=== PATIENT | female | born 1995 | race Hispanic/Latino ===

== ENCOUNTER 2019-08-11 20:06 | Emergency (ER) | payer OTHER ==
[~2019-08-11] VITALS: Ht 165.1 cm; Wt 127.0 kg
--- OUTSIDE RECORDS SUMMARY | 2019-08-11 20:09 | XMS REPORT ---
[facility] Address Unknown Phone Unavailable Care Team Providers Care Investment Underwriter Name Role Phone Unavailable Unavailable Payers Payer Name Policy Type Policy Number Effective Date Expiration Date Problems This patient has no known problems. Allergies, Adverse Reactions, Alerts Allergy Name Allergy Type Status Severity Reaction(s) Onset Date Inactive Date Treating Clinician Comments No Known Allergies DA Active U 2013-09-25 00:00:00 Medications This patient has no known medications.
[2019-08-11] MEDS ORDERED: ONDANSETRON HCL INJ 2MG/ML 2ML 2 MG/ML VIAL IV NR (20:43)
[2019-08-11] MEDS ORDERED: SODIUM CHLORIDE 0.9% 1000ML 1,000 ML IV ONE (20:45)
[2019-08-11 21:00] LABS: BASOPHILS % 0.1 % (0.0-1.0); EOSINOPHILS % 0.1 % (0.0-6.0); HEMOGLOBIN 13.3 g/dL (12.0-16.0); LYMPHOCYTES # (AUTO) 0.8 (1.0-3.2); LYMPHOCYTES % 7.8 % (18.0-39.1); MEAN CORPUSCULAR HGB CONC 34.1 g/dL (31-35); MEAN CORPUSCULAR VOLUME 87.8 fL (81-99); MONOCYTES # (AUTO) 0.3 (0.2-0.8); MONOCYTES % 3.1 % (4.4-11.3); NEUTROPHILS # (AUTO) 8.8 (2.1-6.9); NEUTROPHILS % 88.5 % (38.7-80.0); PLATELET COUNT 190 x10e3/uL (140-360); RED BLOOD COUNT 4.44 x10e6/uL (3.6-5.1); RED CELL DISTRIBUTION WIDTH 12.2 % (11.7-14.4)
--- NOTE | 2019-08-11 21:16 | Diagnostic Imaging Report ---
EXAMINATION: CHEST 2 VIEWS INDICATION: ^COUGH, FEVER ^Y COMPARISON: None FINDINGS: PA and lateral views TUBES and LINES: None. LUNGS: Lungs are well inflated. Mild medial right lower lung field hazy opacification. PLEURA: No pleural effusion or pneumothorax. HEART AND MEDIASTINUM: The cardiomediastinal silhouette is unremarkable. BONES AND SOFT TISSUES: No acute osseous lesion. Soft tissues are unremarkable. UPPER ABDOMEN: No free air under the diaphragm. IMPRESSION: Mild medial right lower lung field opacification, could represent atelectasis or developing pneumonia in the appropriate clinical context. Signed by: Dr. Jose Luis Duarte MD on 08/11/2019 9:13 PM
[2019-08-11 21:17] LABS: ALANINE AMINOTRANSFERASE 23 IU/L (0-55); ALBUMIN 3.5 g/dL (3.5-5.0); ALBUMIN/GLOBULIN RATIO 0.9 (0.8-2.0); ALKALINE PHOSPHATASE 71 IU/L (40-150); ANION GAP 14.4 mmol/L (8-16); BLOOD UREA NITROGEN 11 mg/dL (7-26); BUN/CREATININE RATIO 15 (6-25); CALCIUM 9.1 mg/dL (8.4-10.2); CARBON DIOXIDE 20 mmol/L (22-29); CHLORIDE 102 mmol/L (98-107); CREATININE, SERUM 0.71 mg/dL (0.57-1.11); EST GLOMERULAR FILTRATION RATE > 60 ML/MIN (60-); GLUCOSE 98 mg/dL (74-118); POTASSIUM 3.4 mmol/L (3.5-5.1); SODIUM 133 mmol/L (136-145)
[2019-08-11 21:55] LABS: STREPTOCOCCUS GRP A ANTIGEN NEGATIVE (NEGATIVE)
[2019-08-11 22:05] LABS: INFLUENZAE A&B ANTIGEN (RAPID) NEGATIVE (NEGATIVE)
[2019-08-11] MEDS ORDERED: ACETAMINOPHEN 325 MG TAB PO ONE (22:15)
[2019-08-11 23:10] LABS: BILIRUBIN,URINE SMALL (NEGATIVE); CLARITY,URINE CLOUDY (CLEAR); COLOR,URINE YELLOW (YELLOW); LEUKOCYTE ESTERASE ,URINE NEGATIVE (NEGATIVE); NITRITE,URINE NEGATIVE (NEGATIVE); PROTEIN,URINE DIPSTICK NEGATIVE (NEGATIVE); URINE UROBILINOGEN 0.2 mg/dL (0.2 - 1)
[2019-08-11 23:18] LABS: KETONES,URINE 2+ (NEGATIVE)
[2019-08-11 23:25] LABS: BACTERIA,URINE MANY /HPF; EPITHELIAL CELLS,URINE MODERATE /LPF
== END 2019-08-12 00:09 | disposition home or self-care (01) ==
LOC: ER 20:06
DX: R50.9 Fever, unspecified (principal); R05 Cough; J15.9 Unspecified bacterial pneumonia; N30.91 Cystitis, unspecified with hematuria
CPT/HCPCS: 36415; 71046; 80053; 81001; 83518; 84702; 85025; 87070; 87400; 99284; J2405; J7030

== ENCOUNTER 2019-08-13 16:10 | Emergency (ER) | payer OTHER ==
[~2019-08-13] VITALS: Ht 165.1 cm; Wt 127.0 kg
[2019-08-13] MEDS ORDERED: SODIUM CHLORIDE 0.9% 1000ML 1,000 ML IV STA (17:17)
[2019-08-13] MEDS ORDERED: ONDANSETRON HCL INJ 2MG/ML 2ML 2 MG/ML VIAL IV STA (17:19)
[2019-08-13] MEDS ORDERED: ACETAMINOPHEN/CODEINE ELIX 120-12 MG/5 ML UDC PO ONE (17:30)
[2019-08-13 19:02] LABS: BASOPHILS % 0.2 % (0.0-1.0); EOSINOPHILS % 0.5 % (0.0-6.0); HEMATOCRIT 36.9 % (34.2-44.1); HEMOGLOBIN 12.4 g/dL (12.0-16.0); LYMPHOCYTES # (AUTO) 1.6 (1.0-3.2); MEAN CORPUSCULAR HEMOGLOBIN 29.9 pg (28-32); MEAN CORPUSCULAR HGB CONC 33.6 g/dL (31-35); MEAN CORPUSCULAR VOLUME 88.9 fL (81-99); MONOCYTES # (AUTO) 0.5 (0.2-0.8); MONOCYTES % 8.2 % (4.4-11.3); NEUTROPHILS # (AUTO) 3.7 (2.1-6.9); NEUTROPHILS % 63.8 % (38.7-80.0); PLATELET COUNT 165 x10e3/uL (140-360); RED BLOOD COUNT 4.15 x10e6/uL (3.6-5.1); RED CELL DISTRIBUTION WIDTH 12.3 % (11.7-14.4)
[2019-08-13 19:24] LABS: ALANINE AMINOTRANSFERASE 14 IU/L (0-55); ALBUMIN/GLOBULIN RATIO 0.8 (0.8-2.0); ALKALINE PHOSPHATASE 58 IU/L (40-150); ANION GAP 12.5 mmol/L (8-16); BLOOD UREA NITROGEN 9 mg/dL (7-26); BUN/CREATININE RATIO 15 (6-25); CALCIUM 8.8 mg/dL (8.4-10.2); CARBON DIOXIDE 24 mmol/L (22-29); CHLORIDE 106 mmol/L (98-107); CREATININE, SERUM 0.62 mg/dL (0.57-1.11); EST GLOMERULAR FILTRATION RATE > 60 ML/MIN (60-); GLUCOSE 104 mg/dL (74-118); POTASSIUM 3.5 mmol/L (3.5-5.1); SODIUM 139 mmol/L (136-145)
[2019-08-13 20:41] LABS: CLARITY,URINE SL CLOUDY (CLEAR); COLOR,URINE YELLOW (YELLOW)
[2019-08-13 20:42] LABS: LEUKOCYTE ESTERASE ,URINE NEGATIVE (NEGATIVE); NITRITE,URINE NEGATIVE (NEGATIVE); PROTEIN,URINE DIPSTICK NEGATIVE (NEGATIVE)
[2019-08-13 20:43] LABS: BILIRUBIN,URINE NEGATIVE (NEGATIVE); KETONES,URINE NEGATIVE (NEGATIVE); PREGNANCY TEST, URINE NEGATIVE (NEGATIVE); URINE UROBILINOGEN 0.2 mg/dL (0.2 - 1)
[2019-08-13 20:54] LABS: BACTERIA,URINE MANY /HPF; EPITHELIAL CELLS,URINE MANY /LPF
[2019-08-13 21:02] VITALS: BP 120/85
== END 2019-08-13 21:12 | disposition home or self-care (01) ==
LOC: ER 16:10
DX: R50.9 Fever, unspecified (principal); R05 Cough; R51 Headache; M54.2 Cervicalgia; J15.9 Unspecified bacterial pneumonia; N39.0 Urinary tract infection, site not specified
CPT/HCPCS: 36415; 80053; 81001; 81025; 83518; 85025; 87070; 87086; 99283; J2405; J7030

== ENCOUNTER 2021-03-16 21:18 | Emergency (ER) | payer BC ==
[~2021-03-16] VITALS: Ht 165.1 cm; Wt 138.3 kg
[2021-03-16] MEDS ORDERED: CYCLOBENZAPRINE HCL 10 MG TAB PO ONE (22:15)
[2021-03-16] MEDS ORDERED: HYDROCODONE/APAP 5MG-325MG TAB PO ONE (22:15)
[2021-03-16] MEDS ORDERED: HYDROCODON-ACE1 EA11 PO ×2 (22:22→22:35)
[2021-03-16] MEDS ORDERED: TIZANIDINE HCL4 M1 PO (22:27)
[2021-03-16] MEDS ORDERED: CYCLOBENZAPRINE HCL 10 MG TAB ONE (22:31)
[2021-03-16] MEDS ORDERED: TYLENOL # 31 EA PO (22:41)
== END 2021-03-16 22:20 | disposition home or self-care (01) ==
LOC: FSED 21:38
DX: M54.5 Low back pain (principal); M62.830 Muscle spasm of back; E66.01 Morbid (severe) obesity due to excess calories; Z68.43 Body mass index [BMI] 50.0-59.9, adult; F41.9 Anxiety disorder, unspecified
CPT/HCPCS: 99283

== ENCOUNTER 2022-07-24 09:32 | Emergency (ER) | payer SELFPAY ==
[~2022-07-24] VITALS: Ht 165.1 cm; Wt 103.0 kg
[~2022-07-24 09:32] MED LIST: HYDROCODON-ACE1 EA11 PO; TIZANIDINE HCL4 M1 PO; TYLENOL # 31 EA PO
[2022-07-24] MEDS ORDERED: MELATONIN3 MG PO (10:16)
[2022-07-24] MEDS ORDERED: WELLBUTRIN XL150 MG PO (10:16)
[2022-07-24] MEDS ORDERED: SERTRALINE HCL100 MG PO (10:16)
[2022-07-24] MEDS ORDERED: CEFTRIAXONE 1 GM VIAL IM ONE (11:00)
[2022-07-24] MEDS ORDERED: ALBUTEROL/IPRATROPIUM 3 ML NEB NEB ONE (11:00)
[2022-07-24] MEDS ORDERED: ALBUTEROL/IPRATROPIUM 3 ML NEB ONE (11:16)
[2022-07-24] MEDS ORDERED: CEFDINIR300 MG PO (11:17)
[2022-07-24] MEDS ORDERED: PROVENTIL HFA6.7 GM INH (11:18)
[2022-07-24] MEDS ORDERED: MEDROL4 MG PO (11:19)
== END 2022-07-24 11:38 | disposition home or self-care (01) ==
LOC: FSED 09:40
DX: N39.0 Urinary tract infection, site not specified (principal); J06.9 Acute upper respiratory infection, unspecified; J98.01 Acute bronchospasm; F41.9 Anxiety disorder, unspecified; Z87.440 Personal history of urinary (tract) infections; Z98.84 Bariatric surgery status; B96.20 Unspecified Escherichia coli [E. coli] as the cause of diseases classified elsewhere
CPT/HCPCS: 81003; 81025; 83518; 87086; 87186; 87400; 96372; 99283; J0696